=== PATIENT | female | born 1975 | race Caucasian/White ===

== ENCOUNTER 2017-02-11 00:02 | Emergency (ER) | payer OTHER ==
[~2017-02-11] VITALS: Ht 165.1 cm; Wt 102.0 kg
[~2017-02-11 00:02] MED LIST: ASCO10003 PO; BISA-16 PO; CARB25TA16 PO; CLOZ100T PO; CLR/5 PO; COEN300C PO; DOCU100C PO; ENTA200T PO; FERR142T PO; FIBER COMPLETE PO; FLNIN NAE; PRLSR20 PO; SNM/25100 PO; VENL-273 PO; VITATAB16 PO
[2017-02-11 00:04] VITALS: TEMP 36.5
[2017-02-11 00:40] VITALS: O2SAT 97; Ht 165.1 cm; Wt 102.0 kg
--- NOTE | 2017-02-11 00:46 | EMERGENCY ROOM VISIT NOTE ---
History Report prepared by Jignesh: Ladi Chavez Under the Supervision of: Dr. Krissy Amado D.O. First contact with patient: 00:14 Chief Complaint: ILLNESS Stated Complaint: CAN'T BREATHE WHEN LYING DOWN,THROWING UP MUCUS History of Present Illness The patient is a 42 year old female who presents to the Emergency Room with complaints of difficulty breathing occurring tonight. Earlier today, the patient was eating a tuna fish sandwich when she suddenly had a vomiting episode containing a large amount of mucous. As per mother, she also had a runny nose. The patient had a temperature of 99 degrees Fahrenheit. She was given ibuprofen with relief. The patient was sleeping when she had a sudden onset of difficulty breathing. She had some symptom relief with sitting up. As per mother, her breathing currently seems to be improved. The patient currently complains of lower abdominal pain. She does not have a cough, urinary symptoms, diarrhea, or any other complaints. She has a history of excessive mucous and ear infections but her current symptoms are more severe than previous. As per mother, she does not have a history of pneumonia. She also did not have any recent ill contacts. Source of History: patient, parent Onset: tonight Position: other (global) Quality: other (difficulty breathing) Timing: other (improved) Modifying Factors (Relieving): other (sitting up) Associated Symptoms: + vomiting, + abdominal pain, No cough, No diarrhea, No urinary symptoms Review of Systems See HPI for pertinent positives & negatives. A total of 10 systems reviewed and were otherwise negative. Past Medical & Surgical Medical Problems: (1) Ear infection (2) Parkinson's disease Family History Patient reports no known family medical history. Social History Smoking Status: Never Smoker Marital Status: single Occupation Status: disabled Current/Historical Medications Scheduled Ascorbic Acid (Vitamin C), 1 PO QAM Azithromycin (Zithromax), 250 MG PO DAILY Bisacodyl (Dulcolax), 5 MG PO HS Clozapine (Clozaril), 100 MG PO 1900 Coenzyme Q10 (Ubidecarenone) (Co Q-10), 600 MG PO BID Desloratadine (Clarinex), 5 MG PO 1900 Docusate Sodium (Stool Softener), 300 MG PO HS Entacapone (Comtan), 200 MG PO 5XD Ferrous Sulfate (Slow Fe), 2 PO DAILY Fluticasone Propionate (Flonase Nasal Wilmore), 2 SPRAYS CATY DAILY Levodopa/Carbidopa (Sinemet Cr 25MG/100MG), 0.5 TABLET PO TID UD Levodopa/Carbidopa (Sinemet 25MG/100MG), 2 TABLETS PO 5XD Omeprazole (Prilosec), 20 MG PO DAILY Venlafaxine Hcl (Venlafaxine Hcl Er), 75 MG PO 1900 Vitamins A & D (Vitamin A & D), 1 TABLET PO QAM [Fiber Complete], 2 TABLETS PO HS Allergies Coded Allergies: Amoxicillin (Verified Allergy, Unknown, UNKNOWN, 03/15/13) Clarithromycin (Verified Allergy, Unknown, UNKNOWN, 03/15/13) Penicillins (Verified Allergy, Unknown, UNKNOWN, 03/15/13) Sulfa Drugs (Verified Allergy, Unknown, UNKNOWN, 03/15/13) Erythromycin (Unverified Adverse Reaction, Unknown, NAUSEA AND VOMITING, ) Physical Exam Vital Signs Date Time Temp Pulse Resp B/P (MAP) Pulse Ox O2 Delivery O2 Flow Rate FiO2 02/11/17 02:30 102 19 130/97 97 Room Air 02/11/17 00:40 97 Room Air 02/11/17 00:22 115 02/11/17 00:04 36.5 125 18 125/72 96 Room Air Physical Exam General: Patient appears lethargic, able to follow commands without difficulty, in no respiratory distress. HEENT: Head - normocephalic and atraumatic Pupils are equal, round, and reactive to light. Extraocular eye muscles are intact, and sclera are anicteric. Normal TMs bilaterally. Nose - moist nasal mucosa without discharge. Mouth - moist buccal mucosa. Oropharynx is nonerythematous and there is no tonsillar exudate or edema noted. Neck: Supple; no JVD, nuchal rigidity, cervical lymphadenopathy. Heart: Tachycardic rate and regular rhythm. There is a normal S1 and S2 with no murmurs, clicks, or gallops appreciated. Lungs: Rhonchi in both lung bases. Abdomen: Soft, completely nontender, nondistended, with good bowel sounds. There are no palpable pulsatile masses or hepatosplenomegaly. There is no guarding, rigidity, or rebound noted. Extremities: No evidence of cyanosis, clubbing, or edema. There are easily palpable peripheral pulses. Skin: warm and dry with poor turgor. No rashes. Medical Decision & Procedures ER Provider Diagnostic Interpretation: X-ray results as stated below per interpretation by me: CHEST X-RAY Borderline cardiomegaly, brain stimulators in each hemithorax, no obvious pulmonary infiltrate although difficult to interpret. Laboratory Results 02/11/17 00:40 Red Blood Count 4.70, Mean Corpuscular Volume 82.3, Mean Corpuscular Hemoglobin 26.4, Mean Corpuscular Hemoglobin Concent 32.0, Mean Platelet Volume 10.3, Neutrophils (%) (Auto) 69.4, Lymphocytes (%) (Auto) 21.2, Monocytes (%) (Auto) 7.3, Eosinophils (%) (Auto) 1.7, Basophils (%) (Auto) 0.1, Neutrophils # (Auto) 6.56, Lymphocytes # (Auto) 2.00, Monocytes # (Auto) 0.69, Eosinophils # (Auto) 0.16, Basophils # (Auto) 0.01 02/11/17 00:40 Test 02/11/17 00:40 02/11/17 00:47 02/11/17 01:45 White Blood Count 9.45 K/uL (4.8-10.8) Red Blood Count 4.70 M/uL (4.2-5.4) Hemoglobin 12.4 g/dL (12.0-16.0) Hematocrit 38.7 % (37-47) Mean Corpuscular Volume 82.3 fL (80-100) Mean Corpuscular Hemoglobin 26.4 pg (25-34) Mean Corpuscular Hemoglobin Concent 32.0 g/dl (32-36) Platelet Count 281 K/uL (130-400) Mean Platelet Volume 10.3 fL (7.4-10.4) Neutrophils (%) (Auto) 69.4 % Lymphocytes (%) (Auto) 21.2 % Monocytes (%) (Auto) 7.3 % Eosinophils (%) (Auto) 1.7 % Basophils (%) (Auto) 0.1 % Neutrophils # (Auto) 6.56 K/uL (1.4-6.5) Lymphocytes # (Auto) 2.00 K/uL (1.2-3.4) Monocytes # (Auto) 0.69 K/uL (0.11-0.59) Eosinophils # (Auto) 0.16 K/uL (0-0.5) Basophils # (Auto) 0.01 K/uL (0-0.2) RDW Standard Deviation 44.0 fL (36.4-46.3) RDW Coefficient of Variation 14.7 % (11.5-14.5) Immature Granulocyte % (Auto) 0.3 % Immature Granulocyte # (Auto) 0.03 K/uL (0.00-0.02) Prothrombin Time 10.4 SECONDS (9.0-12.0) Prothromb Time International Ratio 1.0 (0.9-1.1) Activated Partial Thromboplast Time 29.4 SECONDS (21.0-31.0) Partial Thromboplastin Ratio 1.1 Anion Gap 10.0 mmol/L (3-11) Est Creatinine Clear Calc Drug Dose 126.3 ml/min Estimated GFR () 124.2 Estimated GFR (Non- 107.1 BUN/Creatinine Ratio 19.6 (10-20) Calcium Level 9.0 mg/dl (8.5-10.1) Total Bilirubin 0.4 mg/dl (0.2-1) Aspartate Amino Transf (AST/SGOT) 13 U/L (15-37) Alanine Aminotransferase (ALT/SGPT) 13 U/L (12-78) Alkaline Phosphatase 107 U/L (45-117) Total Protein 7.0 gm/dl (6.4-8.2) Albumin 3.5 gm/dl (3.4-5.0) Globulin 3.5 gm/dl (2.5-4.0) Albumin/Globulin Ratio 1.0 (0.9-2) Bedside Lactic Acid Venous 2.26 mmol/L (0.90-1.70) Urine Color ORANGE Urine Appearance CLEAR (CLEAR) Urine pH (4.5-7.5) Urine Specific Ozan 1.040 (1.000-1.030) Urine Protein NEG (NEG) Urine Glucose (UA) (NEG) Urine Ketones (NEG) Urine Occult Blood (NEG) Urine Nitrite (NEG) Urine Bilirubin (NEG) Urine Urobilinogen (NEG) Urine Leukocyte Esterase (NEG) Urine RBC 0-4 /hpf (0-4) Urine WBC 0 /hpf (0-5) Urine Epithelial Cells 0-5 /lpf (0-5) Urine Bacteria NEG (NEG) Laboratory results per my review. Medications Administered Medications (Trade) Dose Ordered Sig/Maynor Route Start Time Stop Time Status Last Admin Dose Admin Azithromycin (Zithromax Tab) 500 mg NOW STAT PO 02/11/17 02:17 02/11/17 02:18 DC 02/11/17 02:25 500 MG Procedure Zithromax Tab 500 mg PO ECG Indication: abdominal pain, SOB/dyspnea Rate (beats per minute): 107 Rhythm: sinus tachycardia Findings: T-wave inversion (Lead III and aVF), other (Slight flattening of T- wave laterally; significant artifact) Comparison ECG Date: May 11, 2013 Change: Slight T wave flattening laterally is new when compared to May 11, 2013. ED Course 0014: Past medical records reviewed. The patient was evaluated in room B06. A complete history and physical exam was performed. The patient had a chest x- ray as described above. O2 saturations remained greater than 97% on room air while here in the emergency department. 0207: Upon reevaluation, the patient is resting comfortably. I discussed findings and results with the patient's mother. She verbalized agreement of the treatment plan. The patient was discharged home. 0217: Zithromax Tab 500 mg PO Medical Decision The patient presents to the Emergency Room with complaints of difficulty breathing. Differential diagnosis includes but is not limited to sepsis, pneumonia, bronchitis, gastroenteritis, aspiration. Her labs showed normal leucocytes, stable H&H, lactic acid of 2.26, glucose 156, LFTs are normal, normal renal function and coags. I attest that I have personally reviewed the patient's current medication list. Patient was found to have normal blood pressure on screening and does not require follow-up. The patient's mother noted that she seemed to be having some difficulty breathing with excessive mucus production. Upon arrival here in the emergency department, the patient had no significant respiratory distress and no hypoxia. I was concerned for the possibility of significant infection as the mother describes a history of fever. The patient was afebrile here in the ER. She has no leukocytosis. There was an elevated lactic acid but no other signs of sepsis or infection. The patient was resting comfortably. She had taken her sleep medication prior to coming to the emergency department and therefore she was sleepy. The mother was asked to watch over the patient closely. If she developed any further respiratory distress or worsening symptoms, she should return to the ER immediately. Impression Primary Impression: Bronchitis Additional Impression: URI (upper respiratory infection) Scribe Attestation The scribe's documentation has been prepared under my direction and personally reviewed by me in its entirety. I confirm that the note above accurately reflects all work, treatment, procedures, and medical decision making performed by me. Departure Information Dispostion Home / Self-Care Prescriptions Azithromycin (ZITHROMAX) 250 Mg Tab 250 MG PO DAILY, #4 TAB Prov: Krissy Amado D.O. 02/11/17 Referrals Jun Wallace III, M.D. (PCP) Forms HOME CARE DOCUMENTATION FORM, IMPORTANT VISIT INFORMATION, WORK / SCHOOL INSTRUCTIONS Patient Instructions Bronchitis Acute, My [facility] Additional Instructions Rest. Sleep propped up Zithromax daily for next 4 days Follow up with PCP in 48 hours for a recheck. Return to the ER for any increased difficulty breathing Problem Qualifiers Additional Impression: URI (upper respiratory infection) URI type: unspecified URI Qualified Codes: J06.9 - Acute upper respiratory infection, unspecified
[2017-02-11 01:06] LABS: BASO % 0.1 %; BASO ABS # 0.01 K/uL (0-0.2); COMPLETE YES; EOS % 1.7 %; HEMATOCRIT 38.7 % (37-47); IG% 0.3 %; LYMPH % 21.2 %; MEAN CELL VOLUME 82.3 fL (80-100); MEAN CORPUSCULAR HEMOGLOBIN 26.4 pg (25-34); MEAN PLATELET VOLUME 10.3 fL (7.4-10.4); MONO % 7.3 %; NEUT % 69.4 %; PLATELET COUNT 281 K/uL (130-400); WHITE BLOOD COUNT 9.45 K/uL (4.8-10.8)
[2017-02-11 01:16] LABS: PARTIAL THROMBOPLASTIN RATIO 1.1; PROTHROMBIN TIME (PATIENT) 10.4 SECONDS (9.0-12.0)
[2017-02-11 01:24] LABS: BUN/CREATININE RATIO 19.6 (10-20); CREATININE 0.68 mg/dl (0.60-1.20); POTASSIUM 3.4 mmol/L (3.5-5.1)
[2017-02-11 01:56] LABS: MANUAL MICROSCOPIC REQUIRED? YES; REVIEW REQ? NO; URINE APPEARANCE CLEAR (CLEAR); URINE COLOR ORANGE
[2017-02-11 02:06] LABS: SULFASALICYLIC ACID NEG (NEG)
[2017-02-11 02:12] LABS: URINE RBC 0-4 /hpf (0-4); URINE WBC 0 /hpf (0-5)
[2017-02-11 02:13] LABS: URINE BACTERIA NEG (NEG); ZZURINE CULT IF INDIC CATH NO
[2017-02-11] MEDS ORDERED: AZITHROMYCIN 250 MG TAB PO STA (02:17)
[2017-02-11 02:30] VITALS: BP 130/97; PULSE 102; O2SAT 97
[2017-02-11] MEDS ORDERED: AZIT250T PO (02:37)
--- NOTE | 2017-02-11 07:28 | DIAGNOSTIC IMAGING REPORT ---
SINGLE VIEW CHEST CLINICAL HISTORY: Sepsis. FINDINGS: An AP, portable, upright chest radiograph is compared to study dated 05/06/2013 and correlated with chest CT dated 03/15/2013. The examination is degraded by portable technique and patient rotation. Bilateral electronic devices largely obscure the lower lobes. Leads extend in the neck. The cardiomediastinal silhouette is top normal for projection. There are low lung volumes with bibasilar atelectasis. No airspace consolidation or large pleural effusion is identified. No pneumothorax is seen. The skeletal structures are osteopenic. The bony thorax is grossly intact. IMPRESSION: Low lung volumes with no acute cardiopulmonary abnormality. Electronically signed by: Sven Ordonez M.D. 02/11/2017 7:27 AM Dictated Date/Time: 02/11/2017 7:25 AM
== END 2017-02-11 03:10 | disposition home or self-care (01) ==
LOC: C.EDB 00:04
DX: J40 Bronchitis, not specified as acute or chronic (principal); J06.9 Acute upper respiratory infection, unspecified; G20 Parkinson's disease